=== PATIENT | male | born 1955 | race African-American/Black ===

== ENCOUNTER 2022-07-17 17:06 | Emergency (ER) | payer SELFPAY ==
[~2022-07-17] VITALS: Ht 182.9 cm; Wt 87.0 kg
[~2022-07-17 17:06] MED LIST: MOTRIN; TYLENOL #3; VICODIN
[2022-07-17 19:27] LABS: BASOPHILS % 0.9 % (0.0-2.0); EOSINOPHILS % 0.5 % (0.0-5.0); HEMOGLOBIN. 17.7 g/dL (14.0-18.0); LYMPHOCYTES % 43.7 % (20.0-50.0); MEAN CORPUSCULAR HEMOGLOBIN 30.7 pg (28.0-32.0); MEAN CORPUSCULAR VOLUME 91.7 fL (80.0-94.0); MEAN PLATELET VOLUME 7.1 fl (7.4-10.4); NEUTROPHILS % 46.9 % (40.0-76.0); PLATELET 218 x1000/uL (130-400); RED BLOOD CELL COUNT 5.78 mill/uL (4.7-6.1); RED CELL DISTRIBUTION WIDTH 14.7 % (11.6-14.6)
[2022-07-17 19:35] LABS: CHLORIDE 96 mEq/L (98-107)
[2022-07-17 21:43] VITALS: BP 142/96
== END 2022-07-17 21:44 | disposition home or self-care (01) ==
LOC: ER 17:06
DX: J06.9 Acute upper respiratory infection, unspecified (principal); F10.129 Alcohol abuse with intoxication, unspecified; Y90.9 Presence of alcohol in blood, level not specified; I11.9 Hypertensive heart disease without heart failure; Z88.6 Allergy status to analgesic agent
CPT/HCPCS: 36415; 71045; 80053; 84484; 85025; 93005; 99285